=== PATIENT | female | born 1965 | race African-American/Black ===

== ENCOUNTER 2017-01-20 17:16 | Emergency (ER) | payer MEDICAID ==
[2017-01-20] MEDS ORDERED: IPRATROPIUM/ALBUTEROL 0.5-2.5 MG/3 ML AMPUL NEB ONE (17:59)
[2017-01-20] MEDS ORDERED: PREDNISONE 20 MG TABLET PO ONE (17:59)
--- NOTE | 2017-01-20 18:01 | ER Document Report ---
ED Medical Screen (RME) - General Stated Complaint: COUGH,CONGESTION Mode of Arrival: Ambulatory Information source: Patient Notes: 51 y/o F presents to ED c/o productive cough, congestion, and chills. Reports symptoms area worse at night. Denies chest pain or sob without cough. I have greeted and performed a rapid initial assessment of this patient. A comprehensive ED assessment and evaluation of the patient, analysis of test results and completion of the medical decision making process will be conducted by additional ED providers. TRAVEL OUTSIDE OF THE [place] IN LAST 30 DAYS: No - Related Data Allergies/Adverse Reactions: hydrocodone [Hydrocodone] Allergy (Mild, Verified 01/20/17 17:56) Urticaria azithromycin [Azithromycin] Allergy (Verified 01/20/17 17:56) oxycodone HCl [From Percocet] Allergy (Verified 01/20/17 17:56) Past Medical History - Social History Chew tobacco use (# tins/day): No Frequency of alcohol use: None Drug Abuse: None - Past Medical History Cardiac Medical History: Denies: Hx Coronary Artery Disease, Hx Heart Attack, Hx Hypertension Pulmonary Medical History: Reports: Hx Pneumonia Denies: Hx Asthma, Hx Bronchitis, Hx COPD Neurological Medical History: Denies: Hx Cerebrovascular Accident, Hx Seizures Renal/ Medical History: Denies: Hx Peritoneal Dialysis Musculoskeltal Medical History: Denies Hx Arthritis, Reports Hx Musculoskeletal Deformity - Hx bulging disks C3-C4 and L4-L5 Psychiatric Medical History: Reports: Hx Anxiety Past Surgical History: Denies: Hx Hysterectomy, Hx Pacemaker - Immunizations Hx Diphtheria, Pertussis, Tetanus Vaccination: Yes Physical Exam - General General appearance: Appears well, Alert In distress: None - Respiratory Respiratory status: No respiratory distress Breath sounds: Productive cough, Wheezing - Expiratory - Cardiovascular Rhythm: Regular Pulses: Normal: Radial Normal capillary refill: Yes
--- NOTE | 2017-01-20 21:08 | ER Document Report ---
ED General - General Chief Complaint: Pain All Over Stated Complaint: COUGH,CONGESTION Mode of Arrival: Ambulatory Notes: Patient is a 51-year-old female that comes emergency department for chief complaint of fever, cough, yellow sputum production, and sinus pain for several days. Patient denies vomiting, diarrhea, severe headache. Patient denies asthma, COPD, smoking history. TRAVEL OUTSIDE OF THE [place] IN LAST 30 DAYS: No - Related Data Allergies/Adverse Reactions: hydrocodone [Hydrocodone] Allergy (Mild, Verified 01/20/17 17:56) Urticaria azithromycin [Azithromycin] Allergy (Verified 01/20/17 17:56) oxycodone HCl [From Percocet] Allergy (Verified 01/20/17 17:56) Past Medical History - General Information source: Patient - Social History Smoking Status: Never Smoker Chew tobacco use (# tins/day): No Frequency of alcohol use: None Drug Abuse: None Lives with: Family Family History: Reviewed & Not Pertinent Patient has suicidal ideation: No Patient has homicidal ideation: No - Past Medical History Cardiac Medical History: Denies: Hx Coronary Artery Disease, Hx Heart Attack, Hx Hypertension Pulmonary Medical History: Reports: Hx Pneumonia Denies: Hx Asthma, Hx Bronchitis, Hx COPD Neurological Medical History: Denies: Hx Cerebrovascular Accident, Hx Seizures Renal/ Medical History: Denies: Hx Peritoneal Dialysis Musculoskeltal Medical History: Denies Hx Arthritis, Reports Hx Musculoskeletal Deformity - Hx bulging disks C3-C4 and L4-L5 Psychiatric Medical History: Reports: Hx Anxiety Surgical Hx: Negative Past Surgical History: Denies: Hx Hysterectomy, Hx Pacemaker - Immunizations Hx Diphtheria, Pertussis, Tetanus Vaccination: Yes Review of Systems - Review of Systems Constitutional: No symptoms reported EENT: See HPI Cardiovascular: No symptoms reported Respiratory: See HPI Gastrointestinal: No symptoms reported Genitourinary: No symptoms reported Female Genitourinary: No symptoms reported Musculoskeletal: No symptoms reported Skin: No symptoms reported Hematologic/Lymphatic: No symptoms reported Neurological/Psychological: No symptoms reported Physical Exam - Vital signs Vitals: Temp Pulse BP Pulse Ox 98.9 F 103 H 127/81 H 98 01/20/17 17:52 01/20/17 17:52 01/20/17 17:52 01/20/17 17:52 Interpretation: Normal - General General appearance: Appears well, Alert In distress: None - HEENT Head: Normocephalic, Atraumatic Eyes: Normal Conjunctiva: Normal Extraocular movements intact: Yes Eyelashes: Normal Pupils: PERRL Ears: Normal External canal: Normal Tympanic membrane: Normal Sinus: Maxillary - Mild tenderness bilaterally Nasal: Other - Some sinus congestion with slightly swollen turbinates and some nasal discharge Mucous membranes: Normal Pharynx: Normal Neck: Normal. No: Anterior cervical chain, Posterior cervical chain, Meningismus - Respiratory Respiratory status: No respiratory distress Chest status: Nontender Breath sounds: Normal, Nonproductive cough. No: Decreased air movement, Productive cough, Wheezing Chest palpation: Normal - Cardiovascular Rhythm: Regular. No: Tachycardia Heart sounds: Normal auscultation, S1 appreciated, S2 appreciated Murmur: No - Abdominal Inspection: Normal Distension: No distension Bowel sounds: Normal Tenderness: Nontender Organomegaly: No organomegaly - Back Back: Normal, Nontender - Extremities General upper extremity: Normal inspection, Nontender, Normal color, Normal ROM , Normal temperature General lower extremity: Normal inspection, Nontender, Normal color, Normal ROM , Normal temperature, Normal weight bearing. No: Cj's sign - Neurological Neuro grossly intact: Yes Cognition: Normal Orientation: AAOx4 Abraham Coma Scale Eye Opening: Spontaneous [place] Coma Scale Verbal: Oriented Abraham Coma Scale Motor: Obeys Commands Abraham Coma Scale Total: 15 Speech: Normal Motor strength normal: LUE, RUE, LLE, RLE Sensory: Normal - Psychological Associated symptoms: Normal affect, Normal mood - Skin Skin Temperature: Warm Skin Moisture: Dry Skin Color: Normal Course - Re-evaluation Re-evalutation: Initially wheezing patient had resolved with DuoNeb, prednisone. Patient does have a productive cough, sinus tenderness and congestion, however chest x-ray shows no pneumonia, patient is not hypoxic, patient is well appearing on exam especially after treatments. Vital signs normalized. Patient is talkative and has no signs of respiratory distress. Treating with prednisone, patient states she has [id number] nebulizer which she does use in the past which she would like medication for, patient also be given amoxicillin for sinusitis. Discussed primary care follow-up, return precautions, patient states understanding and agreement. - Vital Signs Vital signs: Temp Pulse Resp BP Pulse Ox 98.7 F 94 16 114/77 94 01/20/17 21:23 01/20/17 21:23 01/20/17 21:23 01/20/17 21:23 01/20/17 21:23 Discharge - Discharge Clinical Impression: Wheezing, Cough, Sinus congestion Upper respiratory infection Qualifiers: URI type: unspecified URI Qualified Code(s): J06.9 - Acute upper respiratory infection, unspecified Condition: Stable Disposition: HOME, SELF-CARE Additional Instructions: Examination and symptoms are consistent with bronchitis. No pneumonia is seen on chest x-ray, because of sinus pain and congestion take the amoxicillin as directed. Take the prednisone as directed, use the albuterol if needed, rest. Take the tessalon for cough if needed as directed. Follow-up with primary care. Return to emergency department for any concerning or worsening symptoms. Prescriptions: Benzonatate [Tessalon Perle 100 mg Capsule] 100 mg PO Q8HP PRN #20 cap PRN Reason: Albuterol Sulfate [Albuterol Sulfate 2.5mg/3 mL] 1 vial IH Q4 PRN #30 vial PRN Reason: Amoxicillin Trihydrate [Amoxil 500 mg Capsule] 500 mg PO TID #30 cap Prednisone [Deltasone 10 mg Tablet] 10 mg PO ASDIR PRN #21 tablet PRN Reason: Referrals: NIMCO LUO MD [Primary Care Provider] - Follow up as needed
[2017-01-20 21:29] VITALS: BP 114/77
== END 2017-01-20 21:32 | disposition home or self-care (01) ==
LOC: ER 17:16
DX: J06.9 Acute upper respiratory infection, unspecified (principal); J32.9 Chronic sinusitis, unspecified; R50.9 Fever, unspecified; R06.2 Wheezing; R05 Cough; J34.89 Other specified disorders of nose and nasal sinuses; R09.81 Nasal congestion; Z88.5 Allergy status to narcotic agent; Z88.1 Allergy status to other antibiotic agents; Z87.01 Personal history of pneumonia (recurrent)
CPT/HCPCS: 94640; 99283; 87804; 71020; J7512; J7620

== ENCOUNTER 2017-02-25 17:43 | Emergency (ER) | payer OTHER, MEDICAID ==
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
[2017-02-25 18:04] VITALS: BP 139/87
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
== END 2017-02-25 19:37 | disposition left against medical advice (07) ==
LOC: ER 17:43
DX: M54.2 Cervicalgia (principal); V89.2XXA Person injured in unspecified motor-vehicle accident, traffic, initial encounter
CPT/HCPCS: 99283

== ENCOUNTER 2017-06-27 15:15 | Emergency (ER) | payer MEDICAID ==
--- NOTE | 2017-06-27 15:34 | ER Document Report ---
ED Medical Screen (RME) - General Chief Complaint: Headache Stated Complaint: HEAD PAIN Time Seen by Provider: 06/27/17 15:31 Notes: Patient arrives and complains of throbbing behind the left ear. She states that this started suddenly at 1230 today. She states she also feels like she needs to lean to the left. She also states she has numbness in her left arm since arriving in the emergency department. No nausea or vomiting. No previous strokes. No chronic medical problems. She states her significant other is a neurosurgeon and told her to take an aspirin and go to the emergency department. TRAVEL OUTSIDE OF THE [place] IN LAST 30 DAYS: No - Related Data Allergies/Adverse Reactions: hydrocodone [Hydrocodone] Allergy (Mild, Verified 06/27/17 15:22) Urticaria azithromycin [Azithromycin] Allergy (Verified 06/27/17 15:22) oxycodone HCl [From Percocet] Allergy (Verified 06/27/17 15:22) Past Medical History - Past Medical History Cardiac Medical History: Denies: Hx Coronary Artery Disease, Hx Heart Attack, Hx Hypertension Pulmonary Medical History: Reports: Hx Pneumonia Denies: Hx Asthma, Hx Bronchitis, Hx COPD Neurological Medical History: Denies: Hx Cerebrovascular Accident, Hx Seizures Renal/ Medical History: Denies: Hx Peritoneal Dialysis Musculoskeltal Medical History: Denies Hx Arthritis, Reports Hx Musculoskeletal Deformity - Hx bulging disks C3-C4 and L4-L5 Psychiatric Medical History: Reports: Hx Anxiety Past Surgical History: Denies: Hx Hysterectomy, Hx Pacemaker - Immunizations Hx Diphtheria, Pertussis, Tetanus Vaccination: Yes Physical Exam - Vital signs Vitals: Temp Pulse Resp BP Pulse Ox 98.5 F 66 16 148/83 H 98 06/27/17 15:20 06/27/17 15:20 06/27/17 15:20 06/27/17 15:20 06/27/17 15:20 Course - Vital Signs Vital signs: Temp Pulse Resp BP Pulse Ox 98.5 F 66 16 148/83 H 98 06/27/17 15:20 06/27/17 15:20 06/27/17 15:20 06/27/17 15:20 06/27/17 15:20
--- NOTE | 2017-06-27 15:53 | RADIOLOGY REPORT (SQ) ---
EXAM DESCRIPTION: CT HEAD WITHOUT COMPLETED DATE/TIME: 06/27/2017 3:45 pm REASON FOR STUDY: left maldonado/numbness left side COMPARISON: 02/23/2015. TECHNIQUE: Axial images acquired through the brain without intravenous contrast. Images reviewed wi th bone, brain and subdural windows. Images stored on PACS. All CT scanners at this facility use dose modulation, iterative reconstruction, and/or weight based d osing when appropriate to reduce radiation dose to as low as reasonably achievable (ALARA). [facility]: Dose Right [facility]: CareDose [facility]: Dose Right [facility]: Teradose 4D [facility]: Smart [employer] RADIATION DOSE: Up-to-date CT equipment and radiation dose reduction techniques were employed. CTDIv ol: 49.0 mGy. DLP: 783 mGy-cm. mGy. LIMITATIONS: None. FINDINGS: VENTRICLES: Normal size and contour. CEREBRUM: No masses. No hemorrhage. No midline shift. Normal villagomez/white matter differentiation. N o evidence for acute infarction. CEREBELLUM: No masses. No hemorrhage. No alteration of density. No evidence for acute infarction. EXTRAAXIAL SPACES: No fluid collections. No masses. ORBITS AND GLOBE: No intra- or extraconal masses. Normal contour of globe without masses. CALVARIUM: No fracture. PARANASAL SINUSES: No fluid or mucosal thickening. SOFT TISSUES: No mass or hematoma. OTHER: No other significant finding. IMPRESSION: NORMAL BRAIN CT WITHOUT CONTRAST. TECHNICAL DOCUMENTATION: JOB ID: [id number] Quality ID # [id number]: Final reports with documentation of one or more dose reduction techniques (e.g., Au tomated exposure control, adjustment of the mA and/or kV according to patient size, use of iterative reconstruction technique) 2010 [employer]- All Rights Reserved
[2017-06-27] MEDS ORDERED: NORMAL SALINE 1000 ML 1,000 ML IV ONE (16:16)
[2017-06-27] MEDS ORDERED: DIPHENHYDRAMINE HCL 50 MG/ML VIAL IV ONE (16:16)
[2017-06-27] MEDS ORDERED: PROCHLORPERAZINE EDISYLATE INJ 10 MG/2 ML VIAL IV ONE (16:17)
[2017-06-27] MEDS ORDERED: KETOROLAC TROMETHAMINE INJ/PF 30 MG/1 ML SDV IV ONE (16:17)
--- NOTE | 2017-06-27 16:21 | ER Document Report ---
ED Headache - General Information source: Patient TRAVEL OUTSIDE OF THE [place] IN LAST 30 DAYS: No - HPI Patient complains to provider of: Other - pain and pressure behind left ear Associated symptoms: Other - see above - General Chief Complaint: Headache Stated Complaint: HEAD PAIN Time Seen by Provider: 06/27/17 15:31 Notes: Patient is a 51 year old female who presents to the ED with complaints of sudden onset pain and pressure behind her left ear around 1230 this afternoon. Patient denies nausea, vomiting or any vision changes. Patient also feels dizzy and lightheaded. Patient has had [address] since 2008, normal today. Patient states when she was 2 1/2 she was bit by a dog behind her left ear and always has some tenderness. Patient states after arriving in the ED she began having left arm numbness and the need to lean to the left. PCP: Dr. Leon. ([facility]) - Related Data Allergies/Adverse Reactions: hydrocodone [Hydrocodone] Allergy (Mild, Verified 06/27/17 15:22) Urticaria azithromycin [Azithromycin] Allergy (Verified 06/27/17 15:22) oxycodone HCl [From Percocet] Allergy (Verified 06/27/17 15:22) Past Medical History - General Information source: Patient - Social History Smoking Status: Never Smoker Chew tobacco use (# tins/day): No Frequency of alcohol use: Occasional Drug Abuse: None Family History: Reviewed & Not Pertinent - Past Medical History Cardiac Medical History: Denies: Hx Coronary Artery Disease, Hx Heart Attack, Hx Hypertension Pulmonary Medical History: Reports: Hx Pneumonia Denies: Hx Asthma, Hx Bronchitis, Hx COPD Neurological Medical History: Denies: Hx Cerebrovascular Accident, Hx Seizures Renal/ Medical History: Denies: Hx Peritoneal Dialysis Musculoskeltal Medical History: Denies Hx Arthritis, Reports Hx Musculoskeletal Deformity - Hx bulging disks C3-C4 and L4-L5 Psychiatric Medical History: Reports: Hx Anxiety Past Surgical History: Denies: Hx Hysterectomy, Hx Pacemaker - Immunizations Hx Diphtheria, Pertussis, Tetanus Vaccination: Yes Review of Systems - Review of Systems Constitutional: No symptoms reported EENT: No symptoms reported Cardiovascular: See HPI, Dizziness, Lightheaded Respiratory: No symptoms reported Gastrointestinal: No symptoms reported Genitourinary: No symptoms reported Female Genitourinary: No symptoms reported Musculoskeletal: No symptoms reported Skin: No symptoms reported Hematologic/Lymphatic: No symptoms reported Neurological/Psychological: See HPI, Headaches - behind left hear Physical Exam - Vital signs Vitals: Temp Pulse Resp BP Pulse Ox 98.5 F 66 16 148/83 H 98 06/27/17 15:20 06/27/17 15:20 06/27/17 15:20 06/27/17 15:20 06/27/17 15:20 - Notes Notes: GENERAL: Well-appearing, well nourished and in no acute distress. HEAD: Normocephalic, atraumatic. Eyes: Pupils equal, round, and reactive to light. Extraocular movements intact. ENT: Oral mucosa moist, tongue midline. TM normal. NECK: Full range of motion. Supple without lymphadenopathy. Posterior cervical muscle tenderness LUNGS: Clear to auscultation bilaterally, no wheezes, rales, or rhonchi. No respiratory distress. HEART: Regular rate and rhythm. No murmurs, gallops, or rubs. ABDOMEN: Soft, non-tender. Non-distended. Bowel sounds present in all 4 quadrants. EXTREMITIES: Normal ROM. No Edema. NEUROLOGICAL: Alert and oriented x3. Normal speech. No focal neurological deficits. PSYCH: Normal affect, normal mood. SKIN: Warm, dry, normal turgor. No rashes or lesions noted. (BERNY ESPOSITO) Discharge - Discharge Clinical Impression: Headache Qualifiers: Headache type: unspecified Headache chronicity pattern: acute headache Intractability: not intractable Qualified Code(s): R51 - Headache Condition: Stable Disposition: HOME, SELF-CARE Additional Instructions: Headache: The physician does not feel that the headache you are experiencing has a serious underlying cause. Most headaches are due to emotional stress, with resultant muscle tension (tension headache). Occasionally, headaches are secondary to changes in the blood vessels of the scalp (vascular headache and migraine headache). Sometimes, a headache is the first symptom of another developing illness, such as a viral infection. You have no evidence of stroke, bleeding, meningitis, or other serious cause of your headache. The treatment of headaches varies with the severity and cause of the pain. Not all headaches need pain shots. In fact, there is evidence that using narcotics for headaches may make them worse in the long run. The physician will determine the therapy that's in your best interest. If you develop a fever, if the headache is different from any you've previously experienced, or if the headache progressively worsens, then call your physician at once or go to the emergency room. GET PLENTY OF REST TODAY. FOLLOW UP WITH YOUR DOCTOR TOMORROW IF NOT IMPROVING. RETURN TO THE EMERGENCY ROOM IF ANY NEW OR WORSENING SYMPTOMS. Referrals: NIMCO LEON MD [Primary Care Provider] - Follow up as needed [employer]upur[facility] Attestation: 06/27/17 18:16 I personally performed the services described in the documentation, reviewed and edited the documentation which was dictated to the scribe in my presence, and it accurately records my words and actions. (MARINE WRAY) Nupuribe Documentation - Scribe Written by Angela:: angela Bergman, 06/27/2017, 1622 acting as scribe for :: Anabel
[2017-06-27 19:23] VITALS: BP 122/69
== END 2017-06-27 18:22 | disposition home or self-care (01) ==
LOC: ER 15:15
DX: R51 Headache (principal)
CPT/HCPCS: 99284; 96374; 96375; 70450; J1200; J1885; J0780; J7030

== ENCOUNTER 2017-07-06 10:23 | Emergency (ER) | payer MEDICAID ==
[2017-07-06 10:34] VITALS: BP 134/93
[2017-07-06] MEDS ORDERED: KETOROLAC TROMETHAMINE 60 MG/2 ML SDV IM ONE (11:07)
--- NOTE | 2017-07-06 11:11 | ER Document Report ---
ED Hand/Wrist Injury - General Chief Complaint: Wrist Pain Stated Complaint: RIGHT WRIST PAIN Time Seen by Provider: 07/06/17 10:49 Notes: 51 yo female c/o pain and swelling to right hand into right arm x 1 week. pt recieved an IV with IV medications last week. hand hurt during IV push and has been burning ever since. pt denies any fever. right arm feels hot, hurts to move.l no shortness of breath or chest pain TRAVEL OUTSIDE OF THE [place] IN LAST 30 DAYS: No - HPI Injury to: Arm, Hand Onset: Last week Timing: Constant Quality of pain: Burning - Related Data Allergies/Adverse Reactions: hydrocodone [Hydrocodone] Allergy (Mild, Verified 07/06/17 10:28) Urticaria azithromycin [Azithromycin] Allergy (Verified 07/06/17 10:28) oxycodone HCl [From Percocet] Allergy (Verified 07/06/17 10:28) Past Medical History - General Information source: Patient - Social History Smoking Status: Never Smoker Chew tobacco use (# tins/day): No Frequency of alcohol use: None Drug Abuse: None Lives with: Family Family History: Reviewed & Not Pertinent Patient has suicidal ideation: No Patient has homicidal ideation: No - Medical History Medical History: Negative - Past Medical History Cardiac Medical History: Denies: Hx Coronary Artery Disease, Hx Heart Attack, Hx Hypertension Pulmonary Medical History: Reports: Hx Pneumonia Denies: Hx Asthma, Hx Bronchitis, Hx COPD Neurological Medical History: Denies: Hx Cerebrovascular Accident, Hx Seizures Renal/ Medical History: Denies: Hx Peritoneal Dialysis Musculoskeltal Medical History: Denies Hx Arthritis, Reports Hx Musculoskeletal Deformity - Hx bulging disks C3-C4 and L4-L5 Psychiatric Medical History: Reports: Hx Anxiety Past Surgical History: Denies: Hx Hysterectomy, Hx Pacemaker - Immunizations Hx Diphtheria, Pertussis, Tetanus Vaccination: Yes Review of Systems - Review of Systems Constitutional: No symptoms reported EENT: No symptoms reported Cardiovascular: No symptoms reported Respiratory: No symptoms reported Gastrointestinal: No symptoms reported Genitourinary: No symptoms reported Female Genitourinary: No symptoms reported Musculoskeletal: See HPI Skin: No symptoms reported Hematologic/Lymphatic: No symptoms reported Neurological/Psychological: No symptoms reported Physical Exam - Vital signs Vitals: Temp Pulse Resp BP Pulse Ox 98.0 F 78 18 134/93 H 99 07/06/17 10:30 07/06/17 10:30 07/06/17 10:30 07/06/17 10:30 07/06/17 10:30 Interpretation: Normal - General General appearance: Appears well, Alert - HEENT Head: Normocephalic, Atraumatic Eyes: Normal Pupils: PERRL - Respiratory Respiratory status: No respiratory distress Chest status: Nontender Breath sounds: Normal Chest palpation: Normal - Cardiovascular Rhythm: Regular Heart sounds: Normal auscultation Murmur: No - Abdominal Inspection: Normal Distension: No distension Bowel sounds: Normal Tenderness: Nontender Organomegaly: No organomegaly - Back Back: Normal, Nontender - Extremities General upper extremity: Tender - + tenderness along cephalic vein of right wrist and arm. no pitting edema, erythema noted. distal SMC intact, Normal color, Normal temperature General lower extremity: Normal inspection, Nontender, Normal color, Normal ROM , Normal temperature, Normal weight bearing. No: Cj's sign - Neurological Neuro grossly intact: Yes Cognition: Normal Orientation: AAOx4 Abraham Coma Scale Eye Opening: Spontaneous Abraham Coma Scale Verbal: Oriented Abraham Coma Scale Motor: Obeys Commands Abraham Coma Scale Total: 15 Speech: Normal Motor strength normal: LUE, RUE, LLE, RLE Sensory: Normal - Psychological Associated symptoms: Normal affect, Normal mood - Skin Skin Temperature: Warm Skin Moisture: Dry Skin Color: Normal Course - Re-evaluation Re-evalutation: 07/06/17 11:29 H&P c/w superficial phlebitis from peripheral venous access. pt has pain in spite of catheter removal. pt is nontoxic. no circulatory compromise. no s/s infection. will treat symptomatically with warmth, elevation, steroid taper for inflammation and ultram for pain. - Vital Signs Vital signs: Temp Pulse Resp BP Pulse Ox 98.0 F 78 18 134/93 H 99 07/06/17 10:30 07/06/17 10:30 07/06/17 10:30 07/06/17 10:30 07/06/17 10:30 Discharge - Discharge Clinical Impression: Thrombophlebitis arm Condition: Stable Disposition: HOME, SELF-CARE Instructions: Superficial Phlebitis ([facility]), Elevation & Warmth ([facility]), Ultram ( [facility]), Steroid Medication Additional Instructions: You have inflammation around the vein from your IV the symptoms should resolve in a few days please follow up with your primary care on Tuesday as scheduled Prescriptions: Prednisone [Deltasone 10 mg Tablet] 10 mg PO ASDIR PRN #21 tablet PRN Reason: Tramadol HCl [Ultram 50 mg Tablet] 50 mg PO ASDIR PRN #20 tablet PRN Reason:
== END 2017-07-06 11:29 | disposition home or self-care (01) ==
LOC: ER 10:23
DX: I80.8 Phlebitis and thrombophlebitis of other sites (principal); M79.641 Pain in right hand; Z98.890 Other specified postprocedural states; Z88.5 Allergy status to narcotic agent; Z88.1 Allergy status to other antibiotic agents
CPT/HCPCS: 99283; 96372; J1885

== ENCOUNTER 2017-07-08 22:29 | Emergency (ER) | payer MEDICAID ==
--- NOTE | 2017-07-09 02:25 | ER Document Report ---
ED General - General Chief Complaint: Arm Problem Stated Complaint: ARM/HAND SWELLING Time Seen by Provider: 07/08/17 23:44 Notes: Patient is a 53-year-old female who presents with 1 week of right upper extremity pain after having an IV placed at the base of her right hand. She was seen in the emergency department 3 days ago at that time diagnosed with a superficial thrombophlebitis has been taking the medications are prescribed as directed. She is our primary care doctor today and had x-rays done which were normal. The primary care doctor and asked that she get an ultrasound of right upper extremity so she came to the emergency department to have this completed. She does note a dull, constant burning,, moderate to severe pain in the right upper extremity. Nothing improves or worsens her pain. She denies any history of similar symptoms in the past. She has not had any fever or constitutional symptoms. TRAVEL OUTSIDE OF THE [place] IN LAST 30 DAYS: No - Related Data Allergies/Adverse Reactions: hydrocodone [Hydrocodone] Allergy (Mild, Verified 07/06/17 10:28) Urticaria azithromycin [Azithromycin] Allergy (Verified 07/06/17 10:28) oxycodone HCl [From Percocet] Allergy (Verified 07/06/17 10:28) Past Medical History - General Information source: Patient - Social History Smoking Status: Never Smoker Frequency of alcohol use: None Drug Abuse: None Lives with: Family Family History: Reviewed & Not Pertinent Patient has suicidal ideation: No Patient has homicidal ideation: No - Past Medical History Cardiac Medical History: Denies: Hx Coronary Artery Disease, Hx Heart Attack, Hx Hypertension Pulmonary Medical History: Reports: Hx Pneumonia Denies: Hx Asthma, Hx Bronchitis, Hx COPD Neurological Medical History: Denies: Hx Cerebrovascular Accident, Hx Seizures Renal/ Medical History: Denies: Hx Peritoneal Dialysis Musculoskeltal Medical History: Denies Hx Arthritis, Reports Hx Musculoskeletal Deformity - Hx bulging disks C3-C4 and L4-L5 Psychiatric Medical History: Reports: Hx Anxiety Past Surgical History: Denies: Hx Hysterectomy, Hx Pacemaker - Immunizations Hx Diphtheria, Pertussis, Tetanus Vaccination: Yes Review of Systems - Review of Systems Notes: Constitutional: Negative for fever. HENT: Negative for sore throat. Eyes: Negative for visual changes. Cardiovascular: Negative for chest pain. Respiratory: Negative for shortness of breath. Gastrointestinal: Negative for abdominal pain, vomiting or diarrhea. Genitourinary: Negative for dysuria. Musculoskeletal: Negative for back pain. Skin: Positive for right arm rash and pain Neurological: Negative for headaches, weakness or numbness. 10 point ROS negative except as marked above and in HPI. Physical Exam - Vital signs Vitals: Temp Pulse Resp BP Pulse Ox 98 F 71 18 162/97 H 98 07/08/17 22:35 07/08/17 22:35 07/08/17 22:35 07/08/17 22:35 07/08/17 22:35 Interpretation: Hypertensive Notes: PHYSICAL EXAMINATION: GENERAL: Well-appearing, well-nourished and in no acute distress. HEAD: Atraumatic, normocephalic. EYES: Pupils equal round and reactive to light, extraocular movements intact, sclera anicteric, conjunctiva are normal. ENT: nares patent, oropharynx clear without exudates. Moist mucous membranes. NECK: Normal range of motion, supple without lymphadenopathy LUNGS: Breath sounds clear to auscultation bilaterally and equal. No wheezes rales or rhonchi. HEART: Regular rate and rhythm without murmurs ABDOMEN: Soft, nontender, normoactive bowel sounds. No guarding, no rebound. No masses appreciated. EXTREMITIES: Normal range of motion, no pitting or edema. No cyanosis. NEUROLOGICAL: No focal neurological deficits. Moves all extremities spontaneously and on command. PSYCH: Normal mood, normal affect. SKIN: Warm, Dry, normal turgor, streaking erythema up the right forearm extending from the wrist with associated mild right hand swelling Course - Re-evaluation Re-evalutation: 07/09/17 02:23 Presentation is most consistent with a likely cellulitis initiating from IV puncture site on the right upper extremity. Patient has no significant edema no be atypical for a patient without risk factors to develop an acute right upper extremity clot. However, I have encouraged the patient to return to the emergency department in the morning for a venous Doppler. I did also offer the patient to remain here in the emergency department overnight and obtain the ultrasound when the technicians arrived in the morning and she has declined this offer. She was started on cephalexin at this time as I again think the most likely diagnosis based on history and exam is a cellulitis. Patient otherwise well in appearance, vitals normal limits, no acute distress, no evidence of trauma. At this time will discharge with return precautions and follow-up recommendations. Verbal discharge instructions given a the bedside and opportunity for questions given. Medication warnings reviewed. Patient is in agreement with this plan and has verbalized understanding of return precautions and need to return for ultrasound of right upper extremity in the morning. - Vital Signs Vital signs: Temp Pulse Resp BP Pulse Ox 97.7 F 62 17 154/99 H 93 07/09/17 02:32 07/09/17 02:32 07/09/17 02:32 07/09/17 02:32 07/09/17 02:32 Discharge - Discharge Clinical Impression: Right arm cellulitis Condition: Good Disposition: HOME, SELF-CARE Additional Instructions: The rash is likely due to infection of your skin. You need to take the antibiotics as prescribed. Please also return to the emergency department in the morning for an ultrasound of the right upper extremity to exclude a clot as an alternative cause of your pain and swelling. Do not stop even if the rash goes away until you have completed all the antibiotics. You should also return if you develop fevers with temperature greater than 101, persistent vomiting, worsening pain, or have any other symptoms that are concerning to you. Prescriptions: Cephalexin Monohydrate [Keflex 500 mg Capsule] 500 mg PO QID #28 capsule Referrals: NIMCO LUO MD [Primary Care Provider] - Follow up as needed
[2017-07-09 02:55] VITALS: BP 154/99
== END 2017-07-09 02:50 | disposition home or self-care (01) ==
LOC: ER 22:29
DX: L03.113 Cellulitis of right upper limb (principal); M79.601 Pain in right arm; M79.89 Other specified soft tissue disorders; I80.9 Phlebitis and thrombophlebitis of unspecified site
CPT/HCPCS: 99283

== ENCOUNTER → 2017-07-09 | Outpatient (CLI) | payer MEDICAID ==
--- NOTE | 2017-07-09 13:13 | RADIOLOGY REPORT (SQ) ---
EXAM DESCRIPTION: VENOUS UNILATERAL UPPER COMPLETED DATE/TIME: 07/09/2017 1:04 pm REASON FOR STUDY: RUE PAIN AND SWELLING M79.609 PAIN IN UNSPECIFIED LIMB COMPARISON: None. TECHNIQUE: Dynamic and static villagomez scale and color images acquired of the right arm venous system. S elected spectral images acquired with additional compression and augmentation maneuvers. The contrala teral subclavian vein and internal jugular vein were also imaged. Images stored on PACS. LIMITATIONS: None. FINDINGS: INTERNAL JUGULAR VEIN: Normal phasicity, compression, augmentation. No visualized echogeni c material on villagomez scale. No defects on color images. Comparison opposite side normal. SUBCLAVIAN VEIN: Normal compression, augmentation. No visualized echogenic material on villagomez scale. No defects on color images. AXILLARY VEIN: Normal compression, augmentation. No visualized echogenic material on villagomez scale. No d efects on color images. BRACHIAL VEIN: Normal compression, augmentation. No visualized echogenic material on villagomez scale. No d efects on color images. BASILIC VEIN: Normal compression, augmentation. No visualized echogenic material on villagomez scale. No de fects on color images. CEPHALIC VEIN: Normal compression, augmentation. No visualized echogenic material on villagomez scale. No d efects on color images. OTHER: No other significant finding. CONTRALATERAL SUBCLAVIAN VEIN AND INTERNAL JUGULAR VEIN: Normal phasicity, compression and augmentation. No visualized echogenic material on villagomez scale. No de fects on color images. IMPRESSION: NO EVIDENCE DVT OR SVT IN THE RIGHT ARM. TECHNICAL DOCUMENTATION: JOB ID: [id number] [employer]- All Rights Reserved
== END ==
LOC: SP 11:18
PROVIDERS: ATTEND Internal Medicine
DX: M79.601 Pain in right arm (principal)
CPT/HCPCS: 93971